=== PATIENT | female | born 2000 | race Two or more races ===

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

== ENCOUNTER → 2022-03-20 | Outpatient (CLI) | payer OTHER ==
--- NOTE | 2022-03-20 23:17 | US ---
EXAMINATION TYPE: Transabdominal DATE OF EXAM: 03/20/2022 4:29 PM COMPARISON: NONE CLINICAL HISTORY: Z36.89 ENCOUNTER FOR OTHER SPECIFIED SCR. Confirm Dates EXAM PERFORMED: Transabdominal (TA) EXAM MEASUREMENTS: GESTATIONAL AGE / DATING Physician Established: (12 weeks/5 days) EDC: 09/27/2022 Dates by LMP: (12 weeks/5 days) EDC: 09/27/2022 Dates by First Scan: No previous this is first scan Dates by Current Scan for: (12 weeks/4 days) EDC: 09/28/2022 MATERNAL ANATOMY Uterus: 10.7 x 8.0 x 9.4 cm Right Ovary: wnl Left Ovary: wnl Post CDS / Adnexa: wnl Presence of free fluid: wnl Presence of corpus luteal cyst: Right Ovary= 1.8 x 1.5 x 1.6 cm Presence of subchorionic bleed: No GESTATION / SURVEY CRL: 6.2 cm (12 weeks/4 days) MSD: wnl Heart Rate: 157 bpm Rhythm: Normal IUP: Viable IUP Single, viable IUP/ No abnormality visualized at this time IMPRESSION: Single live intrauterine with ultrasound age of 12 weeks 4 days by crown-rump l ength.
== END | disposition home or self-care (01) ==
LOC: RADUSWWP 16:13
PROVIDERS: ATTEND Obstetrics & Gynecology
DX: Z36.89 Encounter for other specified antenatal screening (principal); Z3A.12 12 weeks gestation of pregnancy
CPT/HCPCS: 76801

== ENCOUNTER 2022-06-19 23:43 | Inpatient (IN) | payer BC, OTHER ==
--- NOTE | 2022-06-20 12:34 | P.HPOB ---
History of Present Illness H&P Date: 06/20/22 Chief Complaint: Right flank pain This patient is a pleasant 22-year-old 1 para 0 female 25-4/7 weeks who is admitted to labor and delivery with complaints of right flank pain. Patient did have a urinary tract infection earlier in the and status post antibiotics. Patient denies any fevers or chills. On admission patient states the pain as a 7 out of 10. Urinalysis shows large amount of white blood cells and bacteria. Clinical examination is consistent with pyelonephritis. care has otherwise been uncomplicated. Review of Systems Constitutional: Reports as per HPI Genitourinary: Reports Menstruation: Reports amenorrhea Past Medical History Past Medical History: No Reported History Additional Past Medical History / Comment(s): WEARS GLASSES, RT SHOULDER FX W/ SURGICAL INTERVENTION AGE 8YP, TONSILS OUT AGE 9 YO, MENSES BEGAN AGE 11 YO History of Any Multi-Drug Resistant Organisms: None Reported Past Surgical History: Tonsillectomy Additional Past Surgical History / Comment(s): FX RT SHOULDER W/ SURGICAL REPAIR AGE 8, TONSILS OUT AGE 9 YO Past Anesthesia/Blood Transfusion Reactions: No Reported Reaction Smoking Status: Never smoker Past Alcohol Use History: None Reported Past Drug Use History: None Reported Medications and Allergies Home Medications Medication Instructions Recorded Confirmed Type Vit No.179/Iron/Folic 1 tab PO DAILY 06/20/22 06/20/22 History [ Tablet] Allergies Allergy/AdvReac Type Severity Reaction Status Date / Time No Known Allergies Allergy Verified 12/13/13 14:07 Exam Intake and Output 06/19/22 06/20/22 06/20/22 22:59 06:59 14:59 Other: Weight 80.739 kg - OBG Physical Exam Patient is having right flank pain Assessment and Plan Assessment: This is a pleasant 22-year-old 1 para 0 female at 25 weeks and 2 days gestation with right flank pain and urinalysis consistent with pyelonephritis. Plan is admission for IV antibiotics and IV fluids and serial CBC. (1) 25 to 26 weeks gestation of Current Visit: Yes Status: Acute Code(s): [id number] - SNOMED Code(s): 674806092 (2) Pyelonephritis affecting Current Visit: Yes Status: Acute Code(s): O23.00 - INFECTIONS OF KIDNEY IN , UNSPECIFIED TRIMESTER SNOMED Code(s): 90873039130837
[2022-06-20] MEDS ORDERED: ACETAMINOPHEN TAB 325 MG TAB PO PRN ×3 (12:38→12:39)
[2022-06-20 14:51] LABS: Appearance,Urine Cloudy (Clear); Bacteria,Urine Few /hpf; Bilirubin,Urine Negative (Negative); Blood,Urine Small (Negative); Calcium Oxalate Crystals,Urine Few /hpf; Color,Urine Yellow; Glucose,Urine (UA) Negative (Negative); Ketones,Urine Negative (Negative); Leukocyte Esterase,Urine Large (Negative); Mucus,Urine Occasional /hpf; Nitrite,Urine Positive (Negative); PH, Urine 6.5 (5.0-8.0); Protein,Urine 1+ (Negative); RBC,Urine 35 /hpf (0-5); Squamous Epithelial Cell,Urine 4 /hpf (0-4); Urobilinogen,Urine <2.0 mg/dL (<2.0); WBC,Urine >182 /hpf (0-5)
[2022-06-20 14:59] LABS: Basophils % (A) 0 %; Eosinophils # (A) 0.1 k/uL (0-0.7); Eosinophils % (A) 1 %; HCT 34.1 % (34.0-46.0); HGB 12.2 gm/dL (11.4-16.0); Lymphocytes # (A) 1.1 k/uL (1.0-4.8); Lymphocytes % (A) 10 %; MCH 31.7 pg (25.0-35.0); MCHC 35.7 g/dL (31.0-37.0); MCV 88.8 fL (80.0-100.0); Monocytes # (A) 0.4 k/uL (0-1.0); Monocytes % (A) 3 %; Neutrophils # (A) 9.5 k/uL (1.3-7.7); Neutrophils % (A) 85 %; Platelet Count 250 k/uL (150-450); RBC 3.85 m/uL (3.80-5.40); RDW 13.2 % (11.5-15.5); WBC 11.1 k/uL (4.0-11.0)
[2022-06-20 15:02] LABS: Basophils % (A) 0 %; Eosinophils # (A) 0.1 k/uL (0-0.7); Eosinophils % (A) 1 %; HCT 41.2 % (34.0-46.0); HGB 14.6 gm/dL (11.4-16.0); Lymphocytes # (A) 1.6 k/uL (1.0-4.8); Lymphocytes % (A) 14 %; MCH 31.2 pg (25.0-35.0); MCHC 35.5 g/dL (31.0-37.0); MCV 87.7 fL (80.0-100.0); Mean Platelet Volume 7.1; Monocytes # (A) 0.5 k/uL (0-1.0); Monocytes % (A) 4 %; Neutrophils # (A) 9.1 k/uL (1.3-7.7); Neutrophils % (A) 80 %; Platelet Count 253 k/uL (150-450); RDW 13.3 % (11.5-15.5); WBC 11.4 k/uL (4.0-11.0)
[2022-06-20 15:16] LABS: ALT 16 U/L (4-34); AST 20 U/L (14-36); African American GFR (CKD) >90 (>60 ml/min/1.73 sqM); Albumin 3.7 g/dL (3.5-5.0); Alkaline Phosphatase 66 U/L (38-126); Anion Gap 10 mmol/L; Blood Urea Nitrogen 6 mg/dL (7-17); Calcium 8.9 mg/dL (8.4-10.2); Carbon Dioxide 19 mmol/L (22-30); Chloride 105 mmol/L (98-107); Glucose 93 mg/dL (74-99); Non-African American GFR(CKD) >90 (>60 ml/min/1.73 sqM); Potassium 3.8 mmol/L (3.5-5.1); Sodium 134 mmol/L (137-145); Total Bilirubin 0.2 mg/dL (0.2-1.3); Total Protein 6.4 g/dL (6.3-8.2)
[2022-06-20] MEDS: LACTATED RINGERS 1,000 ML IV SCH ×2 (15:17→22:43)
[2022-06-21] MEDS: LACTATED RINGERS 1,000 ML IV SCH ×2 (04:31→11:20)
--- NOTE | 2022-06-21 07:24 | P.PN ---
Progress Note - Text Progress Note Date: 06/21/22 Hospital day #2. Patient is resting without complaints and is feeling much better. Unfortunately due to the [employer] downtime yesterday her urine culture has not been sent out as of yet. Clinically she is improved and her pain is better. She is afebrile. Plan today is to check a CBC, continue IV antibiotics, and discharge home later this morning on oral Keflex. We will have to check the culture at a later date to make sure the antibiotic coverage is sufficient.
--- NOTE | 2022-06-21 07:37 | P.DS ---
Providers Date of admission: 06/20/22 01:00 Expected date of discharge: 06/21/22 Attending physician: Stevie Cuevas Primary care physician: Stated None - Discharge Diagnosis(es) (1) 25 to 26 weeks gestation of Current Visit: Yes Status: Acute (2) Pyelonephritis affecting Current Visit: Yes Status: Acute Hospital Course: Please see dictated H&P for intimate details of this patient's admission. Brief summary is a pleasant 22-year-old 1 para 0 female 25-1/2 weeks gestation admitted to labor and delivery with complaints of right flank pain and urinalysis consistent with complicated urinary tract infections/pyelonephritis. Patient is given IV Ancef and urine culture was sent however this was delayed due to the hospital's computer system been down. Hospital day #2 patient was clinically much better felt to be stable for discharge home follow up with me in the office this week. Continue oral antibiotics for 7 days. Patient Condition at Discharge: Good Plan - Discharge Summary New Discharge Prescriptions: New Cephalexin [Keflex] 500 mg PO Q6HR 1 Days #28 cap No Action Vit No.179/Iron/Folic [ Tablet] 1 tab PO DAILY Discharge Medication List Vit No.179/Iron/Folic [ Tablet] 1 tab PO DAILY 06/20/22 [History] Cephalexin [Keflex] 500 mg PO Q6HR 1 Days #28 cap 06/21/22 [Rx] Follow up Appointment(s)/Referral(s): Stevie Cuevas MD [STAFF PHYSICIAN] - 06/25/22 Patient Instructions/Handouts: Flank Pain (ED), Urinary Tract Infection in Pr egnancy (DC) Activity/Diet/Wound Care/Special Instructions: Please take the antibiotic, Keflex, as directed. Increase oral fluids. Please keep your appointment on as scheduled Discharge Disposition: HOME SELF-CARE
[2022-06-21 08:47] LABS: Basophils % (A) 0 %; Eosinophils # (A) 0.1 k/uL (0-0.7); Eosinophils % (A) 1 %; HCT 36.8 % (34.0-46.0); HGB 12.8 gm/dL (11.4-16.0); Lymphocytes # (A) 1.1 k/uL (1.0-4.8); Lymphocytes % (A) 13 %; MCH 30.6 pg (25.0-35.0); MCHC 34.7 g/dL (31.0-37.0); Mean Platelet Volume 7.4; Monocytes # (A) 0.3 k/uL (0-1.0); Monocytes % (A) 3 %; Neutrophils # (A) 6.8 k/uL (1.3-7.7); Neutrophils % (A) 81 %; Platelet Count 258 k/uL (150-450); RBC 4.18 m/uL (3.80-5.40); RDW 13.5 % (11.5-15.5); WBC 8.4 k/uL (4.0-11.0)
[2022-06-21 09:05] VITALS: BP 110/62; PULSE 87; RESP 18; TEMP 98
== END 2022-06-21 10:50 | disposition home or self-care (01) | DRG 832 ==
LOC: FBPOP 23:43 → 4FBP 06-20 01:00
PROVIDERS: ADMIT Obstetrics & Gynecology; ATTEND Obstetrics & Gynecology
DX: O23.02 Infections of kidney in pregnancy, second trimester (principal); N10 Acute pyelonephritis; B96.20 Unspecified Escherichia coli [E. coli] as the cause of diseases classified elsewhere; Z3A.25 25 weeks gestation of pregnancy; Z28.310 Unvaccinated for COVID-19; Z28.21 Immunization not carried out because of patient refusal
CPT/HCPCS: 80053; 81001; 85025; 87077; 87086; 87186